=== PATIENT | female | born 1955 | race Caucasian/White ===

== ENCOUNTER 2017-12-30 11:20 | Inpatient (IN) | payer OTHER ==
[~2017-12-30] VITALS: Ht 157.5 cm; Wt 77.8 kg
[2017-12-30 11:59] LABS: BASOPHIL (%) 0.9 % (0-1); BASOPHIL COUNT 0.1 K/uL (0-0.1); EOSINOPHIL (%) 1.8 % (0-5); EOSINOPHIL COUNT 0.2 K/uL (0-0.3); HEMATOCRIT 50.8 % (36.0-46.0); HEMOGLOBIN 17.3 G/DL (11.9-15.5); IMMATURE GRANULOCYTE (%) 0.2 % (0.0-0.7); LYMPHOCYTE (%) 25.6 % (15-42); LYMPHOCYTE COUNT 2.4 K/uL (1.0-2.8); MCH 30.9 PG (29.0-34.0); MCHC 34.1 G/DL (30.0-36.0); MCV 90.7 FL (83-99); MONOCYTE (%) 5.1 % (3-12); MONOCYTE COUNT 0.5 K/uL (0-0.8); NEUTROPHIL (%) 66.4 % (45-76); NEUTROPHIL COUNT 6.1 K/uL (1.8-6.4); PLATELET COUNT 339 K/uL (156-360); RBC DIS.WIDTH-SD 43.3 % (39-53); WHITE BLOOD COUNT 9.2 K/uL (4.1-10.2)
[2017-12-30 12:08] LABS: CHLORIDE 107 mEq/L (99-109); POTASSIUM 3.9 mEq/L (3.7-5.4); SODIUM 144 mEq/L (136-147)
[2017-12-30 12:10] LABS: GLUCOSE 152 mg/dL (70-99)
[2017-12-30 12:14] LABS: CREATININE 0.8 mg/dL (0.6-1.3); GFR ESTIMATE (CALCULATED) > 59 mL/min/
[2017-12-30 12:15] LABS: UREA NITROGEN (BUN) 10 mg/dL (9-23)
[2017-12-30 12:36] LABS: APPEARANCE CLEAR ((CLEAR)); BILIRUBIN NEGATIVE; BLOOD NEGATIVE; COLOR STRAW ((YELLOW)); GLUCOSE (STRIP) NEGATIVE; KETONES NEGATIVE; LEUKOCYTES NEGATIVE; NITRITE NEGATIVE; PROTEIN (STRIP) NEGATIVE; SPECIFIC GRAVITY 1.004 (1.000-1.030); UCUL ADDED? NO; UROBILINOGEN 0.2 MG/DL (0.2-1.0)
[2017-12-30 14:10] LABS: TROP-I INTERPRETATION NEGATIVE; TROPONIN-I < 0.01 ng/mL (0.0-0.30)
[2017-12-30 14:54] LABS: THYROTROPIN (TSH) 0.68 MIU/L (0.4-5.5)
[2017-12-30 18:01] LABS: HDL CHOLESTEROL 48 MG/DL (Desirable>=50); LDL CHOLESTEROL 124 mg/dL (Desirable<100); NON-HDL CHOLESTEROL 152 mg/dL (Desirable<160); TOTAL CHOLESTEROL 200 mg/dL (Desirable<200); TRIGLYCERIDES 138 MG/DL (Normal: <150)
[2017-12-30 18:14] VITALS: BP 165/67
[2017-12-30 20:27] VITALS: BP 153/78
[2017-12-31] VITALS (7 sets, daily range): BP systolic 145–176; BP diastolic 75–91
[2017-12-31 10:31] LABS: HEMOGLOBIN A1c (GLYCOHEMOGLOB) 6.4 % (Below 5.7)
[2018-01-01 07:53] VITALS: BP 166/79
[2018-01-01] MEDS ORDERED: ATORVASTATIN CA40 MG PO (11:13)
[2018-01-01] MEDS ORDERED: NICOTINE PATCH1 EAC2 TD (11:13)
[2018-01-01] MEDS ORDERED: ASPIRIN EC325 MG PO (11:14)
[2018-01-01] MEDS ORDERED: METFORMIN HCL500 MG PO (11:14)
[2018-01-01] MEDS ORDERED: AMLODIPINE BESY10 MG PO (11:14)
[2018-01-01 12:42] VITALS: BP 191/91
[2018-01-01 15:30] VITALS: BP 192/86
[2018-01-01 23:52] VITALS: BP 182/85
[2018-01-02 07:25] VITALS: BP 192/89
[2018-01-02 17:54] VITALS: BP 161/106
[2018-01-02 20:00] VITALS: BP 125/78
[2018-01-03 01:43] VITALS: BP 148/71
[2018-01-03 04:00] VITALS: BP 125/78
[2018-01-03 08:00] VITALS: BP 128/70
[2018-01-03] MEDS ORDERED: LOPRESSOR25 MG PO (11:51)
[2018-01-06 12:36] LABS: RENIN ACTIVITY 0.25 ng/mL/h (0.25-5.82)
[2018-01-07 16:01] LABS: Epinephrine, Plasma 50 pg/mL (()); Norepinephrine, Plasma 345 pg/mL (())
== END 2018-01-03 13:48 | disposition home health service (06) | DRG 66 ==
LOC: EME 11:20 → 5SOUTH 15:59 → EDOF 15:59 → ENRESERV 16:07 → 5SOUTH 18:01 → ENPENDDIS 01-03 12:06 → 5SOUTH 01-03 13:48
PROVIDERS: Emergency Medicine; Emergency Medicine Emergency Medical Services; Hospitalist; Internal Medicine
DX: I63.9 Cerebral infarction, unspecified (principal); R47.01 Aphasia; R41.89 Other symptoms and signs involving cognitive functions and awareness; F01.50 Vascular dementia, unspecified severity, without behavioral disturbance, psychotic disturbance, mood disturbance, and anxiety; I51.7 Cardiomegaly; I15.0 Renovascular hypertension; I70.1 Atherosclerosis of renal artery; R73.03 Prediabetes; R29.701 NIHSS score 1; F17.200 Nicotine dependence, unspecified, uncomplicated; E66.3 Overweight; Z68.31 Body mass index [BMI] 31.0-31.9, adult; Z86.73 Personal history of transient ischemic attack (TIA), and cerebral infarction without residual deficits
CPT/HCPCS: 70450; 70551; 71046; 76770; 80048; 80061; 81003; 82088 90; 82384 90; 82533 91; 83036; 84244 90; 84443; 84484; 85025; 92507 GN; 92522 GN; 92610 GN; 93005; 93306; 93880; 93975; 99202; 99281; 99285; J1650